=== PATIENT | female | born 1980 | race American Indian/Alaskan Native ===

== ENCOUNTER 2022-04-08 12:02 | Inpatient (IN) | payer OTHER, BC ==
[~2022-04-08] VITALS: Ht 167.6 cm; Wt 96.4 kg
--- NOTE | ~2022-04-08 | OR ---
[facility] [address], [place] [address] Draft DATE OF OPERATION: 04/23/2022 SURGEON: Robert Camilo MD BUSINESS DEVELOPMENT INTERN: Dr. Jain. PREOPERATIVE DIAGNOSIS: Uterovaginal prolapse, stress incontinence. POSTOPERATIVE DIAGNOSIS: Uterovaginal prolapse, stress incontinence. PROCEDURES: Total vaginal hysterectomy, bilateral salpingectomy, anterior and posterior repair, obturator sling, cystoscopy, sacrospinous cuff suspension. ANESTHESIA: Spinal with IV sedation. ESTIMATED BLOOD LOSS: 120 mL. DRAINS: Rosa catheter. PACKS: Vaginal. INDICATIONS AND FINDINGS: The patient is a 42-year-old female who has been having worsening symptoms related to her uterovaginal prolapse and desired surgical correction. At the time of surgery, exam under anesthesia revealed significant uterine prolapse with a grade 2 cystocele and grade 2 rectocele. The ovaries and tubes were normal. PROCEDURE IN DETAIL: The patient was prepped and draped in the dorsal lithotomy position. A weighted speculum was placed and the anterior and posterior lips of the cervix were visualized and grasped with single-tooth tenaculums. The cervix was injected with 1% lidocaine with 1:200,000 epinephrine to a volume of 10 mL. The posterior cul-de-sac was then PATIENT NAME: BETTIE MARCUS OPERATIVE REPORT DATE OF : 76 REPORT #: [id number] PHYSICIAN: ROBERT CAMILO MD PCP: SVEN MORELOS PA-C REPORT IS CONFIDENTIAL AND NOT TO BE RELEASED WITHOUT AUTHORIZATION [facility] [address], [place] [address] Draft entered sharply and the Chester-Neck speculum replaced into the posterior cul-de-sac. The uterosacral ligaments were grasped bilaterally, divided with the Zavala scissors and suture ligated with 0 Vicryl. A knife was then used to circumscribe the vaginal mucosa and sharp dissection was used to push this up off the cervix. The anterior peritoneum was not entered at this time. Another bite was taken on each side and the cardinal ligament areas and these were again divided and suture ligated. Following this, the anterior cul-de-sac could be entered. Remaining pedicles including the uterine vessels and lower portions of the broad ligament pedicles were serially grasped and incised, taking care to incorporate both the anterior and posterior peritoneum. These were all suture ligated with 0 Vicryl. Following this, the remaining broad ligament pedicles on each side could be grasped and transected. This was followed by free tie of 0 Vicryl followed by suture ligature of 0 Vicryl. The specimen was thus removed. Attention was directed to the tubes. The patient's left tube was grasped with [place]k clamp and as much of the tube was possible, including the fimbriated end was grasped and clamped across with a curved Z clamp and excised. This was followed by free tie of 0 Vicryl. The same procedure was carried out on the patient's right. Following this, the cuff was inspected. There was some bleeding around the uterine vessels on the patient's left side and a kxpvbp-wc-pryhd of 0 Vicryl was placed with good hemostasis noted. Posterior cul-de-sac was also having some issues with bleeding and the peritoneum was brought to the posterior cuff with two ugmabp-gn-epshs sutures of 0 Vicryl. Following this, it was felt that the cuff could be closed. The peritoneum was identified and closed with a running suture of 3-0 Vicryl. The cuff itself was closed with a running locking stitch of 0 Vicryl running from the patient's right side of the cuff to the left. Following this, the anterior vaginal mucosa was incised. This was done from just below the urethra to near the vaginal cuff. The vaginal mucosa was from the underlying tissue with a combination of blunt and sharp dissection. The dissection was carried out superiorly and laterally to behind the pubic rami for use with the sling. Following this, the knife was used to make incisions over the obturator notches bilaterally. The trocars for the sling were then introduced. These were placed at the lowest most medial portion of the obturator notch and brought immediately behind the pubic rami and into the portion of the dissection in the vaginal apex. This was done bilaterally. The Rosa catheter was then removed and a 70 degree scope was inserted and the bladder evaluated. She had received IV fluorescein. There was no evidence of any incursion of the trocars into the bladder. Prompt spill of the fluorescein stained urine was noted from both of the ureteral orifices. There was no other damage noted. The cystoscope was removed and after the bladder was drained the Rosa catheter replaced. Following this, the cystocele was repaired with interrupted sutures of 0 Vicryl in the perivesical fascia. These were done superficially. Following this, the sling was attached to the trocar sites and brought through the skin incisions. The tag was thus removed and the covering also removed. Care was taken to keep the sling in the mid urethral area with appropriate tension. The excess sling was trimmed at the skin and the skin incisions were closed with interrupted sutures of 3-0 Vicryl Rapide. The vaginal mucosa was then PATIENT NAME: BETTIE MARCUS OPERATIVE REPORT DATE OF : 76 REPORT #: [id number] PHYSICIAN: ROBERT CAMILO MD PCP: SVEN MORELOS PA-C REPORT IS CONFIDENTIAL AND NOT TO BE RELEASED WITHOUT AUTHORIZATION [facility] [address], [place] [address] Draft trimmed slightly and the incision line was closed with a running suture of 2-0 Vicryl. Attention was then directed to the posterior compartment. The knife was used to remove a triangle of tissue from the perineal body. The vaginal mucosa was then undermined and incised in the midline to the apex of the vagina. The vaginal mucosa was then from the underlying tissue with a combination of blunt and sharp dissection. The dissection was carried out superiorly to the sacrospinous ligaments bilaterally. Following this, the Capio device was used to deploy a 0 Fleming-Luis suture into the sacrospinous ligament approximately 1 cm medial to the sacrospinous. This was done bilaterally. Each of these was then attached to the vaginal cuff and tied. This allowed for good elevation of the vaginal cuff. The site-specific repair was then done for the posterior repair reapproximated using the perirectal fascial type tissue with interrupted sutures of 0 Vicryl. Following this, a rectal examination was done which confirmed good reduction of the defect and no sutures compromising the rectal lumen. FloSeal was injected around the sacrospinous ligaments to further aid in hemostasis. The vaginal mucosa was then trimmed and the vaginal mucosa was closed in a running suture of 2-0 Vicryl from the apex of the vagina to near the hymenal ring. The perineal body was recreated with interrupted sutures of 0 Vicryl. The posterior fourchette was recreated with a running suture of 2-0 Vicryl. The skin of the perineum was closed with subcuticular sutures of 2-0 Vicryl. Inspection of the vault showed good length and caliber. There was good hemostasis noted. The vaginal canal was then packed with Premarin-coated gauze. All sponge and needle counts were correct. She tolerated procedure well and was taken to the recovery room in good condition. MD ZHEN Damian/MODL /[id number] cc: Serafin Jain MD Copies: SERAFIN JAIN MD ~ PATIENT NAME: BETTIE MARCUS OPERATIVE REPORT DATE OF : 76 REPORT #: [id number] PHYSICIAN: ROBERT CAMILO MD PCP: SVEN MORELOS PA-C REPORT IS CONFIDENTIAL AND NOT TO BE RELEASED WITHOUT AUTHORIZATION
[~2022-04-08 12:02] MED LIST: PREDNISONE20 MG PO
[2022-04-09] MEDS ORDERED: ZITHROMAX250 MG PO (15:41)
[2022-04-09] MEDS ORDERED: PROBICHEW 21 B1 EACH PO (15:41)
[2022-04-09] MEDS ORDERED: BIOTIN10 MG PO (15:42)
[2022-04-09] MEDS ORDERED: VITAMIN D325 MCG PO (15:42)
[2022-04-09] MEDS ORDERED: ZYRTEC10 MG PO (15:43)
--- NOTE | 2022-04-23 07:26 | NUR ---
UP TO BR WITH ASSIST. UNDERWEAR OFF AT THIS TIME CHUX UNDER.
--- NOTE | 2022-04-23 08:03 | NUR ---
0745 up to br. warm air on per request.
--- NOTE | 2022-04-23 08:05 | NUR ---
PT RATHER DROWSY, BUT RESPONDS TO MY VOICE. NADIR IN SUPPORT. GAVE ENCOURAGEMENT, PT PLEASANT BUT OBVIOUSLY WANTING TO NAP. GAVE BLESSING, NADIR WILL REMAIN FOR DC. WILL FOLLOW NEEDED
--- NOTE | 2022-04-23 11:43 | NUR ---
04/23/22 1143 Justina Starr 1053 PT ARRIVED IN PACU SLEEPY WITH NO C/O'S. KWAN IN PLACE WITH BRIGHT YELLOW URINE PRESENT. 1115 VISITING WITH STAFF. NO C/O'S. 1135 TO ROOM 114. REPORT GIVEN TO RN. BED PLUGGED IN.
--- NOTE | 2022-04-23 12:05 | NUR ---
PATIENT ARRIVED VIA BED TO MED SURG ROOM 114 AT 1130. PATIENT DENIES PAIN OR NAUSEA, IS HAVING CLEAR LIQUIDS AND TOLERATING THEM WELL. PATIENT ORIENTED TO ROOM AND BED CONTROLS. KWAN CATHETER INTACT WITH BRIGHT YELLOW URINE. NO BUTCH DRAINAGE NOTED. PER REPORT, VAG PACKING IS IN PLACE, BUT WAS NOT VISUALIZED. PATIENT IS ORIENTED, DEMONSTRATED UNDERSTANDING OF PROCEDURE AND POST SURGERY EXPECTATIONS. VITALS ARE STABLE, NEXT TO BE DONE AT 1230. NO OTHER NEEDS NOTED AT THIS TIME.
--- NOTE | 2022-04-23 12:43 | NUR ---
SECOND SET OF POST OP VITALS ARE IN, BP UP TO 108/69. PATIENT DENIES PAIN, RESTING FLAT IN BED. SPOUSE IS IN ROOM WITH PATIENT.
--- NOTE | 2022-04-23 15:00 | NUR ---
DENIES PAIN AT THIS TIME. NO BLEEDING NOTED. VITALS WNL. SIGNIFICANT OTHER AT BEDSIDE.
--- NOTE | 2022-04-23 16:30 | NUR ---
Resting with eyes closed, respirations even and unlabored. Allowed to rest at this time. Call light in reach.
--- NOTE | 2022-04-23 17:51 | NUR ---
PATIENT WITH 100 ML EMESIS THIS AFTERNOON, PRN ZOFRAN AND MECLIZINE ADMINISTERED. STARTED ON SCOPALMINE PATCH. IV FLUIDS INFUSING. NO BLEEDING NOTED. PACKING REMAINS IN PLACE. KWAN IN PLACE. HAS NOT BEEN UP TO AMBULATE YET. STATES PAIN IS DULL ACHE, VERY TOLERABLE AT THIS TIME.
--- NOTE | 2022-04-23 18:46 | NUR ---
Resting in bed, eyes closed. Respirations even and unlabored. Allowed to rest.
--- NOTE | 2022-04-23 19:41 | NUR ---
Patient sleeping in bed. Call light within reach.
--- NOTE | 2022-04-23 21:20 | NUR ---
IN TO ASSIST PT WITH FOLET AND IV TUBING WHILE PT TURNED SELF TO LEFT SIDE, NO FURTHER NEEDS AT THIS TIME
--- NOTE | 2022-04-24 00:25 | NUR ---
IN TO CHECK PTs SCDS PUMP, RESOLVED ALARM, VS ALSO CHECKED, KWAN EMPTIED
--- NOTE | 2022-04-24 01:13 | NUR ---
Patient sleeping in bed. Call light within reach.
--- NOTE | 2022-04-24 04:00 | NUR ---
iv pump alarming, new bag iv fluids hung and infusing as directed, iv site wnl. call light in reach, no additioanl needs or concerns.
--- NOTE | 2022-04-24 04:13 | NUR ---
Uneventful shift. Alert and oriented. Calls appropriately. On RA. Lung sounds clear. Bowel sounds active. Infusing LR at 125. Rosa cath in place. Clear yellow urine draining. Scant amount of dark red blood from vag packing. Packing remains in place. Patient tolerating reg diet. Pain is minimal. Has remained in bed throughout shift.
--- NOTE | 2022-04-24 04:58 | NUR ---
Patient ambulated w/SBA in room at this time. Wants to try crackers this morining.
--- NOTE | 2022-04-24 06:29 | NUR ---
Rosa catheter pulled at this time. Patient due to be bladder scanned at 0730.
--- NOTE | 2022-04-24 09:07 | NUR ---
SALINE LOCKED PER DR ORDER.
--- NOTE | 2022-04-24 09:38 | NUR ---
Up to BR, voided 200 mL. Bladder scanned with 597 ml. Patient up to void again, 70 mL out. Bladder scanned post void with 507ml noted.
[2022-04-24] MEDS ORDERED: PSEUDOEPHEDRIN120 MG PO (09:40)
--- NOTE | 2022-04-24 10:31 | NUR ---
Attempt to void 2 more times. UO 70 mL to 200 mL q void. Remains with residuals of greater than 500 mL with bladder scan after every void. Called Dr. Camilo's office and message left with Perla. Will have Dr. Camilo call with orders when she is available.
--- NOTE | 2022-04-24 10:41 | NUR ---
SPOKE WITH DR. SCHAFER. CALLIE SCHAFER/Everett HANDY, RN, TO STRAIGHT CATH NOW AND MONITOR FLUID INTAKE.
--- NOTE | 2022-04-24 10:48 | NUR ---
PT UP TO VOID IN HAT, THIS CNA2 PERFORMED A POST RISIDULE VOID SCAN ON PT. 250 VOIDED, 581 PRV. RN IN ROOM AND NOTIFIED.
--- NOTE | 2022-04-24 11:20 | NUR ---
Spoke with Shahab. She states she lives with her spouse and 2 boys in the upstairs of their home and her mother lives in the downstairs. Pt states she will have help for all her needs. She does not use any DME. Plans on dc to home with family when cleared medically and is able to void.
--- NOTE | 2022-04-24 13:17 | NUR ---
PT SHOWERED INDEPENDENTLY AFTER SET UP. PT VOID, THIS CNA2 BLADDER SCANNED PT. REPORTED TO RN. PT IN BED RESTING THEN WOULD LIKE TO WALK THE HALLS. SHE WILL CALL WHEN SHE IS READY. CALL LIGHT IN REACH. AT BEDSIDE.
[2022-04-24] MEDS ORDERED: VENTOLIN HFA18 GM INH (13:50)
[2022-04-24] MEDS ORDERED: MULTI VITAMIN1 EACH PO (13:50)
--- NOTE | 2022-04-24 13:51 | NUR ---
MED REC COMPLETE
--- NOTE | 2022-04-24 14:21 | NUR ---
LAST 2 VOIDS PATIENT HAD LESS THAN 400 ML RETENTION VIA BLADDER SCAN. ALERT AND ORIENTED. STATES PERCOCET HAS HELPED TO RELIEVE PAIN. AMBULATING IN HALLWAYS RECENTLY. STATES SHE IS BEGINNING TO HAVE SOME PAIN IN RIGHT SHOULDER, AWARE IT IS LIKELY GAS PAINS. ENCOURAGED TO CONTINUE TO AMBULATE. INFORMED PATIENT SHE SHOULD ATTEMPT TO URINATE AROUND 1500 AND CALL WHEN SHE IS DONE SO STAFF MAY BLADDER SCAN AGAIN. VERBALIZES UNDERSTANDING.
--- NOTE | 2022-04-24 15:49 | NUR ---
PT ALERT, ORIENTED AND VISITING WITH HER NADIR. PT HOPES TO DC TODAY, BUT HER BLADDER IS NOT EMPTYING. PT SEEMS TO BE DEALING WELL WLITH THIS CHALLENGE, NADIR SUPPORTIVE. GAVE BLESSING AND WILL FOLLOW NEEDED
--- NOTE | 2022-04-24 15:57 | NUR ---
BLADDER SCANNED PT POST VOID. 315. RN NOTIFIED.
--- NOTE | 2022-04-24 16:32 | NUR ---
Improving ability to empty bladder after straight cath this AM for retention. Pain controlled with oral medications. Remains on room air. Ambulating in the hallway multiple times today, independently. Showered this afternoon. Post void bladder scans less than 400 mL this afternoon. Saline locked. tolerating regular diet.
--- NOTE | 2022-04-24 17:30 | NUR ---
PRN analgesic provided. 16 Fr santa catheter inserted using sterile technique with immediate return of straw colored, clear urine. Balloon inflated with 10 ml sterile NS. Patient tolerated well. See Intake and Output.
--- NOTE | 2022-04-24 19:46 | NUR ---
Patient sleeping in bed. Call light within reach.
--- NOTE | 2022-04-25 01:01 | NUR ---
Patient sleeping in bed. Call light within reach.
--- NOTE | 2022-04-25 04:38 | NUR ---
Uneventful shift. Back/groin Pain adequately treated w/PRN percocet. Fully alert and oriented. Calls appropriately. Lung sounds clear. On RA. Saline locked. Rosa in place. Voiding adequate amount. Has remained in bed. Complains of shoulder pain r/t gas. No complaints of dizziness or nausea.
--- NOTE | 2022-04-25 06:10 | NUR ---
VS AND I&O COMPLETED. WATER PROVIDED. AQUILES AGUIRRE. NO OTHER NEEDS AT THIS TIME. CALL LIGHT IN REACH.
--- NOTE | 2022-04-25 06:15 | NUR ---
Rosa catheter removed at this time.
--- NOTE | 2022-04-25 06:16 | NUR ---
VS AND I&O COMPLETED. AQUILES WNJaime. WATER PROVIDED. NO OTHER NEEDS. CALL LIGHT IN REACH.
--- NOTE | 2022-04-25 07:05 | NUR ---
REPORT FROM DONALD RN, PT KWAN OUT AT 6:30 AM AND DUE TO VOID WITH BLADDER TRIALS. PAIN CONTROLED WITH PERCOCET. CALL LIGHT IN REACH - WHITE BOARD UPDATED.
--- NOTE | 2022-04-25 07:45 | NUR ---
NO VOID YET, GILMAR IN WITH PT AND THIS RN, DISCUSSED BLADDER SCAN PLAN, AND RE CHECK AT NOON. PT EDUCATED TO EAT AND DRINK NORMAL - AND TO TRY NOT TO FOCUS/WORRY ABOUT TRIAL - REPORTS BOTTOM PAIN, AND RN REASSURED PT THIS WAS NORMAL AND COMMON AND THAT KONDROMEL AND STOOL SOFTNERS ARE ON BOARD.
--- NOTE | 2022-04-25 08:21 | NUR ---
PATIENT IN BED AT THIS TIME PER REQUEST. HAS NO OTHER NEEDS AT THIS TIME FOR THIS CUSTOMER RESPONSE REPRESENTATIVE, CALL LIGHT WITHIN REACH.
--- NOTE | 2022-04-25 09:10 | NUR ---
SET PATIENT UP FOR SHOWER, WAS COMPLETED INDEPENDENTLY. PT ALSO WALKED COUPLE LAPS AROUND MED/SURG.
--- NOTE | 2022-04-25 10:12 | NUR ---
PATIENT IN BED AFTER MEAL. VITALS AND I/O'S COMPLETED. PT HAS NO OTHER NEEDS AT THIS TIME. CALL LIGHT WITHIN REACH.
--- NOTE | 2022-04-25 10:31 | NUR ---
PATIENT WALKING LAP DOWN MED/SURG M[place]ORMICK.
--- NOTE | 2022-04-25 10:51 | NUR ---
PT ALERT, ORIENTED AND APPEARS TO BE RELAXING IN BED. PT FEELS GOOD, OK WITH JUST WAITING FOR HER BLADDER TO WORK. NO NEEDS AT THE MOMENT. THANKED ME FOR CHECKING. GAVE BLESSING, WILL FOLLOW
--- NOTE | 2022-04-25 11:00 | NUR ---
PT UP FOR FIRST VOID POST KWAN - 10 ML OF URINE NOTED FOR PVR OF 390 ML. BACK TO BED - DOES NOT FEEL LIKE SHE NEEDS TO VOID - EATING ICE CHIPS,
--- NOTE | 2022-04-25 11:20 | NUR ---
UP TO VOID 200 ML URINE, PVR = 391 URINE PT STILL DOES NOT FEEL NEED TO VOID.
--- NOTE | 2022-04-25 11:20 | NUR ---
VOID 200 ML URINE - POST VOID RESIDUAL 447 - NO URGE TO VOID
--- NOTE | 2022-04-25 11:35 | NUR ---
VOID 175 ML, POST VOID RESIDUAL = 648 ML - NO URGE TO VOID.
--- NOTE | 2022-04-25 11:41 | NUR ---
THIS CNA2 ASSISTED [facility] STUDENT IN POST VOID BLADDER SCAN ON PT AFTER VOIDING 175 PVR WAS 648. RN NOTIFIED.
--- NOTE | 2022-04-25 12:00 | NUR ---
dr buenrostro updated on i/o place santa now - this rn placed 14 fr. pt toll well - 800 ml clear yellow pale urine immediate return. pt upset with bladder trial - reassured that it happens - po percoet will be given next with meal and pt agreed to plan and anticipates visiting with dr buenrostro for further updates.
--- NOTE | 2022-04-25 12:45 | NUR ---
DR SCHAFER HERE TO SEE PT - UPDATED WITH AQUILES CHANDLER.
--- NOTE | 2022-04-25 13:10 | NUR ---
just spoke with dr buenrostro - plan for dc with leg bag today - rx to pt to [facility] and pharmacy [facility] aware of consult.
[2022-04-25] MEDS ORDERED: IBU800 MG PO (13:17)
[2022-04-25] MEDS ORDERED: OXYCODONE HCL5 MG PO (13:18)
[2022-04-25] MEDS ORDERED: TYLENOL EXTRA500 MG PO (13:18)
[2022-04-25] MEDS ORDERED: KONDREMUL2.5 ML/5 M PO (13:19)
[2022-04-25] MEDS ORDERED: SENOKOT-S TABL1 EACH PO (13:20)
--- NOTE | 2022-04-25 14:55 | NUR ---
DC INST. TO PT - RN TAUGHT LEG BAG - PT PREFERS LG KWAN BAG - BOTH SENT WITH GRADUATED CYLENDER TO EMPTY FREQUENTLY AND RECORD. PT IV DC, AND DC INST VERBALIZED UNDERSTANDING OF WRITTEN INST. HAS RX FILLED.
--- NOTE | 2022-04-29 17:13 | PATH ---
[facility] [address], [place] [address] Signed SPECIMEN(S): A UTERUS, CERVIX, BILAT FALLOPIAN TUBES SPECIMEN SOURCE: A. UTERUS, CERVIX, BILAT FALLOPIAN TUBES CLINICAL HISTORY: Uterovaginal prolapse, stress incontinence. FINAL PATHOLOGIC DIAGNOSIS: Uterus, cervix, bilateral fallopian tubes, hysterectomy with bilateral salpingectomy: - Ectocervical epithelium within normal limits. - Endocervical epithelium with focal squamous metaplasia. - Chronic cervicitis. - Nabothian cyst. - Uterus with proliferative phase endometrium. - Fallopian tubes within normal limits. TWK:[id number] MICROSCOPIC EXAMINATION: Histologic sections of all submitted blocks are examined by light microscopy. These findings, together with the gross examination, support the pathologic diagnosis. GROSS DESCRIPTION: The specimen, labeled "FS, uterus, cervix, bilateral fallopian tubes," is received in formalin and consists of uterus and cervix and two and undesignated fallopian tubes. The uterus measures 4.2 cm cornu to cornu, 3.8 cm anterior-posterior and 7.5 cm superior-inferior. Serosal surface is pink-subramanian, smooth. The uterus weighs 92 grams. The ectocervix is pink-subramanian, smooth and measure 5.2 x 5.4 cm. Sectioning through the cervix reveals pink-subramanian homogenous tissue. The endometrial cavity measures 2.2 x 1.7 cm. It is lined with pink-subramanian, smooth endometrium. Sectioning through myometrium reveals trabeculated surface. No masses are grossly identified. The myometrium measures 2.1 cm in thickness. The endometrium measure up to 0.1 cm in thickness. Both fallopian tubes show fimbria and violaceous and smooth serosa. The first fallopian tube measures 3.5 cm in length and 0.7 cm in diameter. Second fallopian tube measures 3.7 cm in length and 0.7 PATIENT NAME: BETTIE MARCUS PATHOLOGY DATE OF : 76 REPORT #: [id number] PHYSICIAN: LESTER ESTEVES PCP: SVEN MORELOS PA-C REPORT IS CONFIDENTIAL AND NOT TO BE RELEASED WITHOUT AUTHORIZATION [facility] [address], [place] [address] Signed cm in diameter. Sectioning through both fallopian tubes is grossly unremarkable. Cassette summary: (A1) cervix, sales development representative sections, posterior inked (A2) endomyometrium, sales development representative sections (A3) first fallopian tube, sales development representative sections (A4) second fallopian tube, sales development representative sections JS (under the direct supervision of a pathologist) The Gross Description was prepared using a voice recognition system. The report was reviewed for accuracy; however, sound-alike word errors, addition and/or deletions may occur. If there is any question about this report, please contact Client Services. PERFORMING LABORATORY: The technical component was performed by [facility], [address] [place] [id number] (CLIA# [id number]). The professional interpretation was performed by [facility], [facility], [address] [place] [address] (CLIA#: [id number]). Diagnostician: Torres Salinas MD Pathologist Electronically Signed 04/29/2022 Copies: ~ PATIENT NAME: BETTIE MARCUS PATHOLOGY DATE OF : 76 REPORT #: [id number] PHYSICIAN: LESTER PATHOLOGY PCP: SVEN MORELOS PA-C REPORT IS CONFIDENTIAL AND NOT TO BE RELEASED WITHOUT AUTHORIZATION
== END 2022-04-25 14:55 | disposition home or self-care (01) | DRG 743 ==
LOC: MS 04-23 05:55 → DSVR 04-23 05:55 → EDSTATUS 04-23 07:30 → DS 04-23 07:30 → MS 04-23 11:30
PROVIDERS: ADMIT Obstetrics & Gynecology; ATTEND Obstetrics & Gynecology
PROC: 0USG7ZZ Reposition Vagina, Via Natural or Artificial Opening (ICD-10-PCS; 2022-04-23)
PROC: 0JQC0ZZ Repair Pelvic Region Subcutaneous Tissue and Fascia, Open Approach (ICD-10-PCS; 2022-04-23)
PROC: 0UT97ZZ Resection of Uterus, Via Natural or Artificial Opening (ICD-10-PCS; principal; 2022-04-23 07:30)
PROC: 0UT77ZZ Resection of Bilateral Fallopian Tubes, Via Natural or Artificial Opening (ICD-10-PCS; 2022-04-23 07:30)
DX: N81.4 Uterovaginal prolapse, unspecified (principal); N39.3 Stress incontinence (female) (male); Z79.899 Other long term (current) drug therapy; Z88.1 Allergy status to other antibiotic agents; Z88.0 Allergy status to penicillin; E78.00 Pure hypercholesterolemia, unspecified; J45.30 Mild persistent asthma, uncomplicated; N31.2 Flaccid neuropathic bladder, not elsewhere classified
CPT/HCPCS: 00944; 36415; 80048; 85025; A9270; C1771; C2631; J0131; J0690; J1200; J1644; J1885; J2250; J2274; J2405; J2704; J2765; J7121